=== PATIENT | male | born 1965 | race Hispanic/Latino ===

== ENCOUNTER 2018-11-15 16:28 | Observation (INO) ==
[2018-11-15 20:34] LABS: BASO# 0.04 X1000 (0.0-0.2); BASO% 0.7 % (0.0-0.8); EOS# 0.11 X1000 (0.0-0.7); HEMATOCRIT 47.4 % (42.0-52.0); HEMOGLOBIN 15.9 g/dL (14.0-18.0); LYMPH# 1.61 X1000 (1.2-3.4); LYMPH% 29.6 % (20.5-51.1); MCH 30.3 PG (27-31); MCHC 33.5 g/dL (33-37); MCV 90.3 FL (81-99); MONO# 0.32 X1000 (0.11-0.59); MONO% 5.9 % (1.7-9.3); MPV 10.2 FL (7.4-10.4); NEUT# 3.36 X1000 (1.4-6.5); NEUT% 61.8 % (42.2-75.2); PLT 165 X1000 (130-400); RBC 5.25 XMIL (4.7-6.1); RDW 12.5 % (11.5-14.5); WBC 5.44 X1000 (4.8-10.8)
[2018-11-15 20:41] LABS: INR 0.92; PROTIME 13.1 Seconds (11.0-16.0)
--- NOTE | 2018-11-15 21:09 | Diag Imaging Result Doc PS360 ---
EXAM: CHEST-2 VIEWS HISTORY: SOB TECHNIQUE: Chest two views COMPARISON: None. FINDINGS: The lungs are well expanded. The heart is not enlarged. The vessels are not distended. There are no infiltrates. No pleural effusions. IMPRESSION: No acute abnormality. Electronically signed by Jorge Boss 11/15/2018 9:07 PM
[2018-11-15 21:19] LABS: AGAP 15; ALB/GLOB RATIO 1.5; ALBUMIN 4.4 g/dL (3.5-5.0); ALKALINE PHOSPHATASE 103 U/L (32-122); BUN 13 mg/dL (8-22); CALCIUM 8.9 mg/dL (8.8-10.2); CHLORIDE 105 mmol/L (98-107); CK PROFILE 129 U/L (24-204); COSMO 280; CREATININE 0.7 mg/dL (0.7-1.2); ESTIMATED GFR > 60; GLUCOSE 109 mg/dL (70-104); GOT 25 U/L (10-34); GPT 34 U/L (10-44); POTASSIUM 4.1 mmol/L (3.5-5.1); SODIUM 140 mmol/L (136-145); TCO2 20 mmol/L (25-35); TOTAL BILIRUBIN 0.21 mg/dL (0.20-1.00); TOTAL PROTEIN 7.3 g/dL (6.3-8.3)
[2018-11-15] MEDS ORDERED: NITROGLYCERIN SL PRN (21:39)
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
[2018-11-16 06:01] LABS: CHOLESTEROL 210 mg/dL (0-200); HDL 44 mg/dL (35-55); LDL 145 mg/dL; TRIGLYCERIDES 103 mg/dL (39-160); VLDL 21 mg/dL
[2018-11-16] MEDS ORDERED: HEPARIN 1000 UNITS/NS 2,000 UNIT/1,000 ML IV.SOLN ONE (08:43)
[2018-11-16] MEDS ORDERED: ASPIRIN PO SCH (09:00)
--- NOTE | 2018-11-16 09:28 | EKG Report ---
Test Performed on : 11/16/2018 09:21:06 AM Test Reason : cp Blood Pressure : / mmHG Vent. Rate : 069 BPM Atrial Rate : 069 BPM P-R Int : 180 ms QRS Dur : 086 ms QT Int : 388 ms P-R-T Axes : 041 006 023 degrees QTc Int : 415 ms Normal sinus rhythm. Normal ECG When compared with ECG of 15-NOV-2018 20:29, (Unconfirmed) No significant change was found Confirmed by Skip MANUEL, Christopher Gaston ([id number]) on 11/19/2018 9:28:43 AM
--- NOTE | 2018-11-16 09:29 | EKG Report ---
Test Performed on : 11/15/2018 8:29:44 PM Test Reason : chest pain Blood Pressure : / mmHG Vent. Rate : 065 BPM Atrial Rate : 065 BPM P-R Int : 180 ms QRS Dur : 084 ms QT Int : 386 ms P-R-T Axes : 035 018 031 degrees QTc Int : 401 ms Normal sinus rhythm. ST elevation, probably due to early repolarization Borderline ECG No previous ECGs available Confirmed by Skip MANUEL, Christopher Gaston ([id number]) on 11/19/2018 9:28:42 AM
[2018-11-16] MEDS ORDERED: MORPHINE ONE (09:32)
[2018-11-16] MEDS ORDERED: NS 500 ML ONE (09:32)
[2018-11-16] MEDS ORDERED: CLAVE TWINSITE 32 IN 11959 ONE (09:32)
[2018-11-16] MEDS ORDERED: ANESTHESIA PB SET 88 IN 5742 ONE (09:32)
[2018-11-16] MEDS ORDERED: VERSED ONE (09:32)
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
--- NOTE | 2018-11-16 10:56 | EKG Report ---
Test Performed on : 11/16/2018 10:47:22 AM Test Reason : post heart cath Blood Pressure : / mmHG Vent. Rate : 063 BPM Atrial Rate : 063 BPM P-R Int : 174 ms QRS Dur : 084 ms QT Int : 402 ms P-R-T Axes : 051 023 034 degrees QTc Int : 411 ms Normal sinus rhythm. Normal ECG When compared with ECG of 16-NOV-2018 09:21, (Unconfirmed) No significant change was found Confirmed by Skip MANUEL, Christopher Gaston ([id number]) on 11/16/2018 10:57:59 AM
[2018-11-16] MEDS ORDERED: NS 300 ML IV SCH (11:00)
[2018-11-16 12:02] VITALS: BP 119/70
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
--- NOTE | 2018-11-20 22:40 | CARDIAC CATH REPORT ---
PROCEDURE NAME: - PROCEDURE PERFORMED: Left heart catheterization with selective coronary angiography and left ventriculography. INDICATIONS: Recurrent chest discomfort suspicious for angina with previous small inferior abnormality or myocardial perfusion imaging. ENTRY SITE: Right femoral artery. CATHETERS USED: 5-Malay JL4, 3DRC, and angled pigtail. TECHNIQUE: After intravenous sedation with Versed and morphine, local anesthesia with lidocaine was applied over right femoral artery. Arterial access was established with placement of a 5- Malay sheath in right femoral artery using modified Seldinger technique. Selective coronary angiography was performed followed by left heart catheterization and left ventriculography. Upon completion of procedure, arterial sheath was removed from right femoral artery and hemostasis facilitated with manual pressure. Patient tolerated the procedure without apparent complications. FINDINGS: Hemodynamics: Aortic pressure 130/55 with a mean of 65. Left ventricular pressure 114 over EDP of 16. COMMENTS: On hemodynamics, there is no significant gradient across the aortic valve demonstrated on pullback from left ventricle. ANGIOGRAPHY: Left ventriculogram. 1. Left ventricle is of normal size without regional wall motion abnormality evident on JARAMILLO projection. Estimated left ejection fraction is approximately 65%. There is no significant mitral regurgitation. 2. Left main coronary artery. The left main coronary artery is angiographically normal. 3. Left anterior descending coronary. The left anterior descending coronary and its branches are angiographically normal. 4. Left circumflex coronary. The left circumflex coronary and its branches are angiographically normal. 5. Right coronary. The dominant right coronary and its branches are angiographically normal. CONCLUSIONS: 1. Normal left ventricular systolic function without wall motion abnormality evident on JARAMILLO projection. 2. Right dominant coronary anatomy with coronary arteries angiographically normal. cc: MD Vishnu Woodard MD
== END 2018-11-16 15:10 | disposition home or self-care (01) ==
LOC: DIRADM 16:28 → INTOOBSV 16:28 → EDIPHOLD 18:06 → 3S 19:41
PROVIDERS: ADMIT Internal Medicine; ATTEND Internal Medicine
CPT/HCPCS: 71020; 71046; 80048; 80053; 80061; 82550; 82948; 83880; 84484; 85025; 85610; 93005; 93010; 93458; A9270; J1644; J2250; J2270; J7040; Q9967; XXXXX